=== PATIENT | female | born 1945 | race Two or more races ===

== ENCOUNTER → 2018-11-08 | Outpatient (CLI) | payer OTHER | END | disposition home or self-care (01) | LOC: RAD 501 11:21 | DX: J44.9 Chronic obstructive pulmonary disease, unspecified (principal); I51.7 Cardiomegaly; I70.0 Atherosclerosis of aorta ==

== ENCOUNTER 2019-01-06 09:08 | Outpatient (CLI) | payer OTHER | END 2019-01-06 11:30 | disposition home or self-care (01) | LOC: LAB 09:08 | DX: H02.421 Myogenic ptosis of right eyelid (principal) ==